=== PATIENT | male | born 1960 | race Two or more races ===

== ENCOUNTER 2022-06-02 10:33 | Outpatient (CLI) | payer OTHER | END 2022-06-02 23:59 | disposition home or self-care (01) | LOC: LAB 10:33 | PROVIDERS: ATTEND Specialist | DX: Z01.812 Encounter for preprocedural laboratory examination (principal); Z20.822 Contact with and (suspected) exposure to COVID-19 | CPT/HCPCS: U0003; C9803 ==

== ENCOUNTER 2022-06-05 05:52 | Day surgery (SDC) | payer OTHER ==
[2022-06-05] MEDS ORDERED: BUPIVACAINE 0.5 % PF 150 MG/30 ML VIAL ONE (06:40)
[2022-06-05] MEDS ORDERED: EPINEPHRINE (1:1000) 1 MG/ML AMPUL ONE (06:41)
[2022-06-05] MEDS ORDERED: methylPREDNISolone ACETATE 80 MG/ML VIAL ONE (06:41)
[2022-06-05] MEDS ORDERED: FENTANYL PF 100MCG/2ML AMPUL ONE (06:57)
[2022-06-05] MEDS ORDERED: MIDAZOLAM HCL 2 MG/2ML VIAL ONE (06:58)
[2022-06-05] MEDS ORDERED: ROCURONIUM BROMIDE 50 MG/5 ML ONE (06:58)
[2022-06-05] MEDS ORDERED: HYDROMORPHONE 1 MG/1 ML DISP.SYRIN ONE ×2 (08:49→09:12)
== END 2022-06-05 10:50 | disposition home or self-care (01) ==
LOC: DS 05:52
PROVIDERS: ATTEND Specialist
DX: M75.42 Impingement syndrome of left shoulder (principal); M65.811 Other synovitis and tenosynovitis, right shoulder; I10 Essential (primary) hypertension; E66.01 Morbid (severe) obesity due to excess calories; Z98.890 Other specified postprocedural states; Z79.899 Other long term (current) drug therapy
CPT/HCPCS: 29827; 29826; J0690; J1100; J2704; J0171; J3010; J3490 ×2; J2765; J0330; J1885; J2405; C1713 ×3; J2250; A4217; J1170 ×2; J1040